=== PATIENT | male | born 1985 | race Caucasian/White ===

== ENCOUNTER 2018-07-23 12:39 | Observation (INO) | payer OTHER ==
[~2018-07-23] VITALS: Ht 182.9 cm; Wt 95.1 kg
[2018-07-23] VITALS (26 sets, daily range): BP systolic 119–152; BP diastolic 55–72; PULSE 60–108; RESP 8–21; Ht 182.9 cm; Wt 95.1 kg
--- NOTE | 2018-07-23 13:25 | PREAC ---
Date/Time of Note Date/Time of Note DATE: 07/23/18 TIME: 13:23 Anesthesia Eval and Record Evaluation Time Pre-Procedure Interview DATE: 07/23/18 TIME: 13:23 Age 32 Sex male NPO: 8 hrs Preoperative diagnosis Left L3-4 herniated nucleus pulposus Planned procedure Left L3-4 microdiscectomy possible adjacent level decompression Past Medical History Past Medical History: Includes Pulm: Asthma (childhood asthma history) Surgery & Anesthesia Issues No known issue Meds Anticoagulation: No Beta Brendon within 24 hr: No Reason Beta Brendon not given: Pt. not on B-Brendon No Active Prescriptions or Reported Meds Meds reviewed: Yes Allergies Coded Allergies: No Known Allergy (Unverified , 07/23/18) Allergies Reviewed: Yes Labs/Studies Labs Reviewed: Reviewed by anesthesiologist test: N/A Studies: ECG (nsr), CXR (no active disease) Pre-procedure Exam Last vitals Vital Signs Date Temp Pulse Resp B/P (MAP) Pulse Ox O2 O2 Flow FiO2 Time Delivery Rate 07/23/18 96.9 60 16 134/66 100 Room Air 13:08 (88) Airway: Adequate mouth opening, Adequate thyromental dist Mallampati: Mallampati II Teeth: Normal Lung: Normal Heart: Normal ASA Physical Status ASA physical status: 1 Emergency: None Planned Anesthetic General/MAC: ETT Pre-operative Attestations Prior to commencing anesthesia and surgery, the patient was re-evaluated, there was verification of: *The patient's identity *The results of appropriate recent lab work and preoperative vital signs *The above evaluation not changing prior to induction *Anesthetic plan, risk benefits, alternative and complications discussed with patient/family; questions answered; patient/family understands, accepts and wishes to proceed. KATHERINE NOBLE Jul 23, 2018 13:25
[2018-07-23] MEDS ORDERED: MIDAZOLAM 1 MG/ML 2 ML INJ ONE (13:49)
[2018-07-23] MEDS ORDERED: PROPOFOL 20 ML ONE ×2 (13:49→14:50)
[2018-07-23] MEDS ORDERED: ROCURONIUM 50 MG INJ ONE ×2 (13:49→14:50)
[2018-07-23] MEDS ORDERED: CEFAZOLIN 1 GM INJ ONE ×2 (13:49→14:50)
[2018-07-23] MEDS ORDERED: DEXAMETHASONE 4 MG/ML 5 ML INJ ONE (13:49)
[2018-07-23] MEDS ORDERED: NEOSTIGMINE 3 MG/3 ML SYRINGE ONE ×2 (13:49→14:50)
[2018-07-23] MEDS ORDERED: FENTAnyl 50 MCG/ML VIAL ONE (13:49)
[2018-07-23] MEDS ORDERED: GLYCOPYRROLATE 0.4 MG INJ ONE ×2 (13:49→14:50)
[2018-07-23] MEDS ORDERED: ONDANSETRON 4 MG INJ ONE (13:49)
[2018-07-23] MEDS ORDERED: DIPHENHYDRAMINE 50 MG INJ IV PRN ×2 (14:30→15:00)
[2018-07-23] MEDS ORDERED: DIPHENHYDRAMINE 25 MG CAP PO PRN (14:30)
[2018-07-23] MEDS ORDERED: HYDROmorphONE 0.5 MG/0.5 ML SYG IV PRN (14:30)
[2018-07-23] MEDS ORDERED: BISACODYL 10 MG SUPP PR PRN (14:30)
[2018-07-23] MEDS ORDERED: ACETAMINOPHEN 325 MG TAB PO PRN (14:30)
[2018-07-23] MEDS ORDERED: CEPASTAT LOZENGE MT PRN (14:30)
[2018-07-23] MEDS ORDERED: CYCLOBENZAPRINE 10 MG TAB PO PRN (14:30)
[2018-07-23] MEDS ORDERED: HYDROCODONE/APAP (10/325) TAB PO PRN (14:30)
[2018-07-23] MEDS ORDERED: NALOXONE (0.4 MG/ML) INJ IV PRN (14:30)
[2018-07-23] MEDS ORDERED: AL HYDROX/MG HYDROX/SIMETH 30 ML CUP PO PRN (14:30)
[2018-07-23] MEDS ORDERED: ONDANSETRON 4 MG INJ IV PRN ×2 (14:30→15:00)
[2018-07-23] MEDS ORDERED: THROMBIN 5000 UNIT VIAL ONE ×2 (14:46→16:26)
[2018-07-23] MEDS ORDERED: HEPARIN 1000 UNITS/ML 10 ML INJ ONE (14:46)
[2018-07-23] MEDS ORDERED: POLYMYXIN/BACITRACIN 1L IRRIG ONE (14:46)
[2018-07-23] MEDS ORDERED: BUPIVACAINE 0.5%/EPI (SDV) 30 ML INJ ONE (14:46)
[2018-07-23] MEDS ORDERED: SURGIFOAM POWDER 1 GM KIT ONE (14:46)
[2018-07-23] MEDS ORDERED: CA CHLORIDE (GM) 10% 10 ML INJ ONE (14:46)
[2018-07-23] MEDS ORDERED: hydrALAzine 20 MG INJ IV PRN (15:00)
[2018-07-23] MEDS ORDERED: OXYCODONE/ACETAMINOPHEN (5/325) TAB PO PRN ×2 (15:00)
[2018-07-23] MEDS ORDERED: MIDAZOLAM 1 MG/ML 2 ML INJ IV PRN (15:00)
[2018-07-23] MEDS ORDERED: FENTAnyl 50 MCG/ML VIAL IV PRN ×3 (15:00)
[2018-07-23] MEDS ORDERED: TRIMETHOBENZAMIDE 100 MG/ML VIAL IM PRN (15:00)
[2018-07-23] MEDS ORDERED: MEPERIDINE 25 MG INJ IV PRN (15:00)
[2018-07-23] MEDS ORDERED: HYDROmorphONE 1 MG/5 ML IV SYRINGE IV PRN ×2 (15:00)
[2018-07-23] MEDS ORDERED: EPHEDrine SULFATE 50 MG/5 ML SYG IV PRN (15:00)
[2018-07-23] MEDS ORDERED: ALBUTEROL 0.083% (NEB) 2.5 MG/3 ML AMP HHN PRN (15:00)
[2018-07-23] MEDS ORDERED: LABETALOL HCL 20MG INJ IV PRN (15:00)
[2018-07-23] MEDS ORDERED: IPRATROPIUM (NEB) 0.5 MG/2.5 ML AMP HHN PRN (15:00)
[2018-07-23] MEDS ORDERED: CEFAZOLIN 1 GM/50 ML (PMX) 50 ML IVPB SCH (15:30)
[2018-07-23] MEDS ORDERED: GELATIN SIZE 100 SPONGE ONE (16:26)
[2018-07-23] MEDS ORDERED: BUPIVACAINE 0.25% (MPF) 30 ML INJ ONE (17:17)
[2018-07-23] MEDS: HYDROmorphONE 1 MG/5 ML IV SYRINGE IV PRN ×2 (18:16→18:25)
--- NOTE | 2018-07-23 19:07 | OPR ---
DATE OF OPERATION: 07/23/2018 PREOPERATIVE DIAGNOSES: Left L3 to L4 disk herniation with inferior migration radiculopathy. POSTOPERATIVE DIAGNOSES: Left L3 to L4 disk herniation with inferior migration radiculopathy. PROCEDURES: 1. Left L3 hemilaminotomy, partial medial facetectomy and foraminotomy. 2. Left L4 hemilaminotomy. 3. Left L4 to L5 lumbar microdiskectomy. 4. Use of operative microscope. 5. Use of C-arm fluoroscopy with interpretation without radiologist present. 6. Intraoperative neuromonitoring. PRIMARY SURGEON: Victorino Vides MD POLICE OFFICER BOOKING: Romy Helton PA-C NEED FOR TRAVOGRAPH OPERATOR: During this spinal surgical procedure, my health information assistant was used to retract and protect the spinal nerves and dural sac. My health information assistant also employed the suction catheters to ev acuate blood from the surgical field to improve visualization of the neural structures. The assistan t was medically necessary to facilitate the completion of the surgery in a safe and expeditious [facility] r. [facility] regulations, as well as hospital bylaws, preclude the use of non-licensed [facility] care personnel, such as operating room technicians, to perform these functions. FINDINGS: Neuromonitoring at the start of the case revealed left L4 amplitude down 40%, left L5 down 40%, left S1 down 10%, right L4 down 20%. At the end of the case, nerve signals returned to normal. The patient had inferiorly migrated herniation at the L3 to L4 level. He had a narrow interpedicul ar distance. ESTIMATED BLOOD LOSS: 40 mL. DRAINS: None. SPECIMENS: L3 to L4 disk. COMPLICATIONS OF PROCEDURES: None. ANESTHESIOLOGIST: Jose Hernandez MD TYPE OF ANESTHESIA: General. INDICATIONS FOR PROCEDURE: This is a 32-year-old gentleman with left lumbar radiculopathy in setting of an L3 to L4 disk herniation with inferior migration. He failed nonoperative measures; therefore, I recommended that he undergo the above procedure. Preoperatively, we discussed risks, benefits and alternatives. He understood and wished to proceed. DESCRIPTION OF PROCEDURE IN DETAIL: The patient was identified in preoperative holding area, given A ncef antibiotic, taken to the operating room, where he was successfully placed under general anesthes ia. Neuromonitoring leads were placed. Sequential compressive devices were applied. Costello catheter was not introduced. Remote intraoperative neuromonitoring was performed by Dr. El from 15:00 until 17:30 to include SSEP, MEP and EMG performed by [facility]. The patient was placed on t he operating table in prone position over a Johnny frame. All bony prominences were well padded. Th e back was prepped in usual sterile fashion. Spinal needles were placed and lateral localizing film was obtained to confirm the correct levels. I then injected paraspinal musculature. I made an incis ion over the L3 to L4 level. Incision was taken down inferiorly to expose the L4 lamina. I made a f ascial incision at the fascia and subperiosteally dissected the L3 and L4 lamina. Radha retractor w as placed. Kerrison punch was placed into the L3 lamina. Repeat lateral films obtained to confirm t he correct levels. Once this was confirmed, microscope was brought in. A left-sided hemilaminotomy was performed of L3. I removed the ligamentum flavum at the attachment site L4 and L3. I performed a medial facetectomy. I then identified the dura. I was unable to go any more laterally with the fa cetectomy at that point the facet would have broken off due to the orientation and narrowed interpedi cular distance. As such, I had to perform a superior laminotomy of L4. I removed nearly 50% of the L4 lamina in order to take this down below the pedicle of L4. The laminotomy was beyond what was req uired in order to perform a simple microdiskectomy at this level. The dura and the nerve root were q uite adherent to the posterior longitudinal ligament. I slowly performed a neurolysis in order to mo bilize the dura and the nerve root. This added at least 30 minutes to the procedure. Once I had mad e sure the lateral margin of the dura and nerve root were free, I made an annulotomy and removed extr uded herniation. I removed the inferior fragment as well and spent quite a bit of time exploring the back of the L4 lamina to make sure that there was no extruded fragments remaining. Once this was do ne, I irrigated the disk space and the wound. Hemostasis was achieved. A Valsalva maneuver was perf ormed and there was no leak of CSF. The wound was dry and therefore, I elected not to place a drain. PPP and thrombin were injected over the dura for hemostatic purposes. I injected the muscle and th e fascia with plain Marcaine. Retractors were removed and I closed deep fascia with #1 Vicryl stitch . I closed subcutaneous tissue with a 2-0 Vicryl stitch. Microscope was taken off the field. A 4-0 Monocryl closure was then performed. Dermabond was then applied. The patient was then awakened fro m anesthesia and taken to the recovery room in stable condition. Lap, sponge and instrument counts w ere correct x2. There were no apparent complications during the procedure. The patient will be admitted to the orthopedic escobar for routine postoperative care to include pain co ntrol, neurovascular checks, antibiotics and physical therapy. Dictated By: VICTORINO WOODSON/EDSON Conf#: [id number] DID#: [id number]
[2018-07-23] MEDS: D5W-0.45 NACL + KCL 20 MEQ 1,000 ML IV SCH (20:09)
[2018-07-23] MEDS: DOCUSATE SODIUM 100 MG CAP PO SCH (20:44)
[2018-07-24 00:01] VITALS: BP 134/63; PULSE 63; RESP 18
[2018-07-24] MEDS: D5W-0.45 NACL + KCL 20 MEQ 1,000 ML IV SCH (00:29)
[2018-07-24 03:39] VITALS: BP 122/56; PULSE 66; RESP 18
[2018-07-24] MEDS: HYDROCODONE/APAP (10/325) TAB PO PRN ×2 (03:45→08:46)
[2018-07-24] MEDS ORDERED: CEFAZOLIN 1 GM/50 ML (PMX) 50 ML IVPB SCH (04:00)
[2018-07-24 07:58] VITALS: BP 125/57; PULSE 80; RESP 18
[2018-07-24] MEDS: DOCUSATE SODIUM 100 MG CAP PO SCH (08:42)
[2018-07-24] MEDS ORDERED: INFLUENZA VIRUS VACCINE 0.5 ML (DISPENSING) IM* ONE (09:00)
--- NOTE | 2018-07-24 11:46 | DS ---
Date/Time of Note Date/Time of Note DATE: 07/24/18 TIME: 11:46 Discharge Summary Admission/Discharge Info Admit Date/Time Jul 23, 2018 at 6:07 pm Discharge Date/Time July 24 Discharge Diagnosis Status post lumbar microdiscectomy Patient Condition: Good Procedures Lumbar microdiscectomy Hospital Course Patient was admitted to the orthopedic escobar after undergoing a lumbar microdiscectomy. His postoperative course was uncomplicated. By postoperative day 1 he was deemed stable for discharge with follow-up arranged with the undersigned Home Meds No Active Prescriptions or Reported Meds Primary Care Provider Not On Staff Doctor Pending Labs Laboratory Tests Test 07/24/18 04:51 07/24/18 08:54 White Blood Count 12.2 10^3/ul (4.8-10.8) Red Blood Count 4.45 10^6/ul (4.70-6.10) Hemoglobin 14.2 g/dl (14.0-18.0) Hematocrit 42.0 % (42.0-52.0) Mean Corpuscular Volume 94.4 fl (82.0-101.0) Mean Corpuscular Hemoglobin 31.9 pg (29.0-33.0) Mean Corpuscular 33.8 g/dl (32.0-37.0) Hemoglobin Concent Red Cell Distribution Width 11.9 % (11.5-14.5) Platelet Count 174 10^3/UL (140-415) Mean Platelet Volume 11.4 fl (7.4-10.4) Immature Granulocytes % 0.600 % (0.001-0.429) Neutrophils % 90.0 % (39.0-77.0) Lymphocytes % 5.7 % (15.0-51.0) Monocytes % 3.6 % (0.0-11.0) Eosinophils % 0.0 % (0.0-7.0) Basophils % 0.1 % (0.0-2.0) Nucleated Red Blood Cells % 0.0 /100WBC (0.0-0.0) Immature Granulocytes # 0.070 10^3/ul (0.0-0.031) Neutrophils # 11.0 10^3/ul (1.6-7.5) Lymphocytes # 0.7 10^3/ul (0.8-2.9) Monocytes # 0.4 10^3/ul (0.3-0.9) Eosinophils # 0.0 10^3/ul (0.0-0.5) Basophils # 0.0 10^3/ul (0.0-0.1) Nucleated Red Blood Cells # 0.0 10^3/ul (0.0-0.0) Sodium Level 140 mmol/L (135-144) Potassium Level 4.6 mmol/L (3.5-5.1) Chloride Level 106 mmol/L (97-110) Carbon Dioxide Level 28 mmol/L (21-31) Anion Gap 6 (5-13) Blood Urea Nitrogen 14 mg/dl (7-20) Creatinine 0.91 mg/dl (0.61-1.24) Est Glomerular Filtrat > 60 mL/min (>60) Rate mL/min Glucose Level 190 mg/dl (70-220) Calcium Level 9.5 mg/dl (8.4-10.2) Magnesium Level 1.8 mg/dl (1.7-2.5) Lab Scanned Report [facility] [id number] ALFREDITO MCKEON MD Jul 24, 2018 11:46 am
--- NOTE | 2018-07-24 14:29 | PAC ---
Date/Time of Note Date/Time of Note DATE: 07/24/18 TIME: 14:29 Post-Anesthesia Notes Post-Anesthesia Note Last documented vital signs Vital Signs Date Temp Pulse Resp B/P (MAP) Pulse Ox O2 O2 Flow FiO2 Time Delivery Rate 07/24/18 98.2 80 18 125/57 98 Room Air 07:58 (79) 07/23/18 4.0 17:55 Activity: WNL Respiratory function: WNL Cardiovascular function: WNL Mental status: Baseline Pain reasonably controlled: Yes Hydration appropriate: Yes Nausea/Vomiting absent: Yes Jose Hernandez M.D. Jul 24, 2018 14:29
== END 2018-07-24 12:40 | disposition home or self-care (01) ==
LOC: SDS 12:39 → EDSTATUS 14:30 → REC 18:07 → SDS 18:07 → MS1 19:40
PROVIDERS: ADMIT Specialist; ATTEND Specialist
DX: M51.16 Intervertebral disc disorders with radiculopathy, lumbar region (principal); Z23 Encounter for immunization
CPT/HCPCS: 63030; 72020; 80048; 83735; 85025; 86999; 88304; 90686; 97116; 97161; 99217; J0690; J1100; J1170; J1644; J2175; J2250; J2405; J2710; J3010; J3250; J3480; G0378